=== PATIENT | female | born 1990 | race Caucasian/White ===

== ENCOUNTER 2019-01-12 17:49 | Emergency (ER) | payer BC ==
[2019-01-12 17:59] VITALS: BP 148/91; PULSE 118; TEMP 98.5; BMI 26.5
--- NOTE | 2019-01-12 18:00 | PDOC ---
Rapid Medical Evaluation Time Seen by Provider: 01/12/19 17:55 Medical Evaluation: Allergies Allergy/AdvReac Type Severity Reaction Status Date / Time No Known Allergies Allergy Verified 01/12/19 17:55 01/12/19 17:55 Pt presents to the ED for abdominal pain on the R side radiating to the back. Pt has history of ovarian cyst with torsion (05/18) Associated nausea and spotting. Pt has IUD in place. Doesn't get cycles Exam:TTP of R lower adenxal/abdomen region Orders: labs, urine, Iv, transvaginal us Pt to proceed to the ED for further evaluation Discharge Disposition - Diagnosis Abdominal pain - Referrals - Patient Instructions - Post Discharge Activity
[2019-01-12] MEDS ORDERED: morphine CARPU-JECT 4 MG/1 ML DISP.SYRIN IVPUSH ONE (18:17)
[2019-01-12] MEDS ORDERED: morphine SULFATE 4 MG/ML VIAL ONE (18:18)
[2019-01-12 18:22] LABS: BASO % 0.6 % (0-2.0); EOS % 1.4 % (0-4.5); HEMATOCRIT 43.4 % (32.4-45.2); HEMOGLOBIN 15.2 GM/dL (10.7-15.3); LYMPH % 25.6 % (8-40); MCH 31.1 pg (25.7-33.7); MCHC 35.1 g/dl (32.0-36.0); MEAN CELL VOLUME 88.6 fl (80-96); MEAN PLT VOLUME 8.9 fl (7.5-11.1); MONO % 4.8 % (3.8-10.2); NEUT % 67.6 % (42.8-82.8); PLATELET COUNT 276 K/MM3 (134-434); RDW 12.6 % (11.6-15.6); WHITE BLOOD COUNT 9.4 K/mm3 (4.0-10.0)
[2019-01-12] MEDS ORDERED: SODIUM CHLORIDE 1,000 ML IV STA (18:25)
--- NOTE | 2019-01-12 18:28 | PDOC ---
Attending Attestation - HPI HPI: Patient is a 28 year old female with PMHx of right sided ovarian torsion s/p surgical correction in [place] coming in today complaining of back and RLQ pain since 10am. Patient states that this pain feels just like her prior ovarian torsion. She also endorses some vaginal spotting. LMP unknown because she doesn' t get periods often due to her mirena IUD. Denies fevers, chills. Endorses nausea, no vomiting. Denies vaginal discharge. <Michelle Lindo - Last Filed: 01/12/19 19:01> - Resident Resident Name: Venancio Maddox - ED Attending Attestation I have performed the following: I have examined & evaluated the patient, The case was reviewed & discussed with the resident, I agree w/resident's findings & plan, Exceptions are as noted - HPI HPI: 01/12/19 18:27 28 yo female dev sudden right sided abd/pelvic pain today. PMH ovarian torsion - Physicial Exam PE: 01/12/19 21:41 [id number] 28 yo female with rt sided pelvic pain that radiated to her low back head ncat neck supple lungs cta b/l cvs [id number] abd initially she has rt abd tenderness that occurred suddenly today no flank pain skin warm and dry neuro axox3,ambulatory - Medical Decision Making 01/12/19 18:39 -significant PSH is ovarian torsion in in the past with surgical correction 01/12/19 18:41 -she is on Mirena for contraception 01/12/19 18:[address] Hook did the pelvic exam. The ultrasound showed good blood flow to rt ovarian ,,there is a 2 cm cyst -current plan is for her to see gynecoloist Dr Gonzalez tomorrow -negative test < discharged home 01/12/19 21:55 <Laura Craft - Last Filed: 01/12/19 21:56>
--- NOTE | 2019-01-12 18:35 | PDOC ---
History of Present Illness - General Chief Complaint: Vaginal Bleeding Stated Complaint: ABD PAIN Time Seen by Provider: 01/12/19 17:55 History Source: Patient Exam Limitations: No Limitations - History of Present Illness Initial Comments: 01/12/19 18:30 Patient is a 28F with history of right sided ovarian torsion s/p surgical correction in [place] last some coming in today complaining of back and right lower abdominal pain that started at 10am. Patient states that this pain feels just like her prior ovarian torsion. Endorses some vaginal spotting. LMP unknown because she doesn't get periods often 2/2 mirena. Denies fevers, chills. Endorses nausea, no vomiting. Denies vaginal discharge. Past History - Past Medical History Allergies/Adverse Reactions: Allergies Allergy/AdvReac Type Severity Reaction Status Date / Time No Known Allergies Allergy Verified 01/12/19 17:55 Home Medications: Ambulatory Orders NK [No Known Home Medication] 01/12/19 COPD: No Other medical history: DENIES. - Surgical History Cholecystectomy: Yes - Suicide/Smoking/Psychosocial Hx Smoking History: Never smoked Review of Systems - Review of Systems Comments:: 01/12/19 18:33 GENERAL/CONSTITUTIONAL: No fever or chills. No weakness. HEAD, EYES, EARS, NOSE AND THROAT: No change in vision. No sore throat. CARDIOVASCULAR: No chest pain or shortness of breath RESPIRATORY: No cough, wheezing, or hemoptysis. GASTROINTESTINAL: +nausea, no vomiting, diarrhea or constipation. GENITOURINARY: No dysuria, frequency, or change in urination. MUSCULOSKELETAL: No joint or muscle swelling or pain. No neck or back pain. SKIN: No rash NEUROLOGIC: No headache, vertigo, loss of consciousness, or change in strength/ sensation. ENDOCRINE: No increased thirst. No abnormal weight change HEMATOLOGIC/LYMPHATIC: No anemia, easy bleeding, or history of blood clots. ALLERGIC/IMMUNOLOGIC: No hives or skin allergy. *Physical Exam - Vital Signs Last Vital Signs Temp Pulse Resp BP Pulse Ox 98.5 F 118 H 18 148/91 99 01/12/19 17:55 01/12/19 17:55 01/12/19 17:55 01/12/19 17:55 01/12/19 17:55 - Physical Exam Comments: 01/12/19 18:34 GENERAL: Awake, alert, and fully oriented, in acute distress, diaphoretic HEAD: No signs of trauma, normocephalic, atraumatic EYES: PERRLA, EOMI, sclera anicteric, conjunctiva clear ENT: Auricles normal inspection, hearing grossly normal, nares patent, oropharynx clear without exudates. Moist mucosa NECK: Normal ROM, supple, no lymphadenopathy, JVD, or masses LUNGS: No distress, speaks full sentences, clear to auscultation bilaterally HEART: Tachycaridc, normal S1 and S2, no murmurs, rubs or gallops, peripheral pulses normal and equal bilaterally. ABDOMEN: Diffusely tender worse in RLQ, guarding, rigid. EXTREMITIES: Normal inspection, Normal range of motion, no edema. No clubbing or cyanosis. NEUROLOGICAL: Cranial nerves II through XII grossly intact. Normal speech, no focal sensorimotor deficits SKIN: Warm, Dry, normal turgor, no rashes or lesions noted. Moderate Sedation - Procedure Monitoring Vital Signs: Procedure Monitoring Vital Signs Temperature 98.5 F 01/12/19 17:55 Pulse Rate 118 H 01/12/19 17:55 Respiratory Rate 18 01/12/19 17:55 Blood Pressure 148/91 01/12/19 17:55 O2 Sat by Pulse Oximetry (%) 99 01/12/19 17:55 ED Treatment Course - LABORATORY CBC & Chemistry Diagram: 01/12/19 18:05 01/12/19 18:05 - Medications Given in the ED: ED Medications Discontinued Medications Generic Name Dose Route Start Last Admin Trade Name Freq PRN Reason Stop Dose Admin Morphine Sulfate 4 mg 01/12/19 18:17 01/12/19 18:22 Morphine Injection - IVPUSH 01/12/19 18:18 4 mg ONCE ONE Administration Medical Decision Making - Medical Decision Making 01/12/19 18:35 Patient is 28F with history of ovarian torsion here today with abdominal pain and back pain concerning for ovarian torsion. Vitals notable for tachycardia. Exam notable for peritoneal signs. Pelvic deferred in lieu of immediate TVUS. Dr Craig contacted, aware of patient. Given morphine 4 for pain. Pelvic exam done by Dr Craig, not repeated by myself. 01/12/19 21:07 CBC stable. CMP normal. UA pending. Per Dr Craig, patient has partial flow to right ovary, explaining pain. Transabdominal pelvic US done to better visualize, pending results. Given motrin for pain. 01/12/19 21:41 UA negative. F/u us shows normal flow to ovary. Suspect patient is pid vs torsing/untorsing. Discussed covering with abx, patient declined. Offered observation, patient declined. Given strict return precautions. Patient aware, reliable. *DC/Admit/Observation/Transfer Diagnosis at time of Disposition: Pelvic pain - Discharge Dispostion Disposition: HOME Condition at time of disposition: Good Decision to Admit order: No - Referrals Referrals: Joslyn Mccoy MD [Staff Physician] - - Patient Instructions Additional Instructions: Please follow up with Dr Mccoy tomorrow morning. Please return to the ED immediately if you have increasing pain, nausea, or vomiting. - Post Discharge Activity Forms/Work/School Notes: Back to School
[2019-01-12 18:41] LABS: INR 0.97 (0.83-1.09); PROTHROMBIN TIME (PATIENT) 11.5 SEC (9.7-13.0)
[2019-01-12] MEDS ORDERED: IBUPROFEN 400 MG TABLET (FP) PO ONE ×2 (18:58→19:08)
--- NOTE | 2019-01-12 19:23 | CON.OBG ---
Consult Consult Specialty:: ob /stock dealer Referred by:: Dr Craft Reason for Consultation:: abdominal pain - History of Present Illness Chief Complaint: 28 yrs , c/o sudden onset of pain in lower abd , more in RLQ scale 10/10. pain is referred to the back .. c/o nausea , but no vomiting History of Present Illness: h/o similar pain in the past in 05/2018 in [place] she had rupture cyst with hemoperitoneum & also she had torsion of Rt ovary. she had laproscopic surgery, cyst was removed , ovarian torsion was corrected . she had blood transfusion during that episode Current Amenorrhea since Mirena inserted in 2016 . sometimes spotting she has spotting for today Past 28 -30 days regular, moderate , painless - History Source History Provided By: Patient, Medical Record Limitations to Obtaining History: No Limitations - Past Medical History Cardio/Vascular: No: HTN Pulmonary: No: Asthma Gastrointestinal: Yes: Other (nausea) Renal/: Yes: Other (no urine symptoms ) Reproductive: Yes: Other (Mirena IUD inserted in 2016) Heme/Onc: Yes: Other (h/o transfusion due to ac blood loss due to rupture cyst ) Infectious Disease: Yes: Other (declines ) Endocrine: Yes: Other (declines ) - Past Surgical History Additional Surgical History: Laproscopic Rt Ovarian cystectomy 05/2018 - Alcohol/Substance Use Hx Alcohol Use: No History of Substance Use: reports: None - Smoking History Smoking history: Never smoked - Social History 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 Home Medications - Allergies Allergies/Adverse Reactions: Allergies Allergy/AdvReac Type Severity Reaction Status Date / Time No Known Allergies Allergy Verified 01/12/19 17:55 - Home Medications Home Medications: Ambulatory Orders NK [No Known Home Medication] 01/12/19 Physical Exam-CHANGE MANAGEMENT CONSULTANT Vital Signs: Vital Signs Temperature 98.5 F 01/12/19 17:55 Pulse Rate 118 H 01/12/19 17:55 Respiratory Rate 18 01/12/19 17:55 Blood Pressure 148/91 01/12/19 17:55 O2 Sat by Pulse Oximetry (%) 99 01/12/19 17:55 Constitutional: Yes: Well Nourished, Severe Distress Eyes: Yes: WNL Gastrointestinal: Yes: WNL, Normal Bowel Sounds, Soft. No: Distention, Vomiting Renal/: No: CVA Tenderness - Left, CVA Tenderness - Right Pelvis: Yes: Tenderness (lower abdomen) External Genitalia: Yes: Normal Internal Exam Deferred: Yes Vaginal Exam: No: Bleeding Cervix: Yes: Normal, Cerv Motion Tenderness, Other (iud string felt) Uterus: Yes: Normal, Freely Moveable, Anteverted, Tender Adnexa: Tender: Bilateral, Not Palpable: Bilateral Breast(s): Yes: Other (not examined) Extremities: Yes: WNL Edema: No Integumentary: Yes: WNL Neurological: Yes: WNL ...Motor Strength: WNL Psychiatric: Yes: WNL Labs: CBC, BMP 01/12/19 18:05 Laboratory Tests 01/12/19 18:05 Sodium 140 Potassium 4.1 Chloride 107 Carbon Dioxide 25 BUN 12 Creatinine 0.8 Random Glucose 84 Calcium 9.7 Total Bilirubin 0.3 AST 12 L ALT 25 Total Protein 7.7 Albumin 4.5 Beta HCG, Quant < 1.0 Laboratory Tests 01/12/19 21:01 Urine Ketones Trace H Urine Blood 3+ H Urine Nitrite Negative Ur Leukocyte Esterase Negative Urine WBC (Auto) 4 Urine RBC (Auto) 28 Problem List - Problems (1) Pelvic pain Code(s): R10.2 - PELVIC AND PERINEAL PAIN Assessment/Plan Ac pelvic pain sonogram prelimnary result : iud in uterus 2 cm cyst behind rt ovay , arterial & venous flow ltd Lt side slightly larger ov cyst free areterial & venous blood flow BHCG pending Imp : possible torsion of Rt ovary can not be ruled out IUD in uterus , possibility of Ac Pid is differential diagnosis 10.00 PM : Dr Corby Moss t/c discuss case with me about findings , 18.18 hr tvs reveals ut 7.3 cmx 4 cm , iud in position in uterus Lt Ovary 4.2x1.9 cm, multiple follicles, largest follicle 1.3 cm , flow normal Rt Ovary 2.3x1.3 cm , partial flow Repeat Pelvic US with full bladder at 19.32hr Rt ovary 3.1x1.6cm normal flow I discussed findings with patient , she states ovary undergoes torsion & untorsion periodically, she does get pain on & off but not acute & severe like npw & in May I discussed with her physical exam also is in favor of PID , WBC is only 9, sometimes it is not only STI that causes PID, , since she has IUD , possibility can not be ruled out . I offered her therapeutic course of antibiotics . She refuses antibiotics. She will only accept if STI is positive. She has not been sexually active for long time she states she knows her body , samething happened to her in May , twisting & untwisting of ovary , she wants permanent solution I told her it is not prudent to remove normal ovary . There could be possibility of long ovarian ligament If pain persists , fever or vomiting she can rt to ER , otherwise she will see Dr Mccoy tomorrow in her office
[2019-01-12 19:30] LABS: ALBUMIN 4.5 g/dl (3.4-5.0); ALK PHOS 78 U/L (45-117); ANION GAP 8 MMOL/L (8-16); BILIRUBIN,TOTAL 0.3 mg/dL (0.2-1); BLOOD UREA NITROGEN 12 mg/dL (7-18); CALCIUM 9.7 mg/dL (8.5-10.1); CHLORIDE 107 mmol/L (98-107); CO2 25 mmol/L (21-32); CREATININE 0.8 mg/dL (0.55-1.3); GLUCOSE,RANDOM 84 mg/dL (74-106); POTASSIUM 4.1 mmol/L (3.5-5.1); SGOT/AST 12 U/L (15-37); SGPT/ALT 25 U/L (13-61); SODIUM 140 mmol/L (136-145); TOT PROT 7.7 g/dl (6.4-8.2)
[2019-01-12 21:12] LABS: URINE APPEARANCE SLCLOUDY; URINE BILIRUBIN NEGATIVE (<2.0 mg/dL); URINE COLOR LTYELLOW; URINE GLUCOSE (UA) NEGATIVE (NEGATIVE); URINE KETONE TRACE (NEGATIVE); URINE LEUK ESTERASE NEGATIVE (NEGATIVE); URINE NITRITE NEGATIVE (NEGATIVE); URINE PROTEIN NEGATIVE (NEGATIVE); URINE UROBILINOGEN NEGATIVE mg/dL (0.2-1.0)
[2019-01-12 21:20] LABS: EPI CELLS RARE /HPF (FEW); URINE MUCUS RARE
== END 2019-01-12 22:16 | disposition home or self-care (01) ==
LOC: JER 17:49
PROC: 3E0337Z Introduction of Electrolytic and Water Balance Substance into Peripheral Vein, Percutaneous Approach (ICD-10-PCS; principal; 2019-01-12)
PROC: 3E033NZ Introduction of Analgesics, Hypnotics, Sedatives into Peripheral Vein, Percutaneous Approach (ICD-10-PCS; 2019-01-12)
DX: R10.2 Pelvic and perineal pain (principal); N83.201 Unspecified ovarian cyst, right side; N83.202 Unspecified ovarian cyst, left side; Z97.5 Presence of (intrauterine) contraceptive device
CPT/HCPCS: 36415; 76830-TC; 76856-TC; 80053; 81003; 81015; 84702; 85025; 85610; 86850; 86900; 86901; 87086; 87491; 87591; 99282-25; J7030